=== PATIENT | male | born 1965 ===

== ENCOUNTER 2023-04-20 20:20 | Emergency (ER) | payer MEDICARE, OTHER ==
[~2023-04-20] VITALS: Ht 185.4 cm; Wt 60.0 kg
[2023-04-20 22:55] VITALS: BP 158/101; PULSE 78; RESP 18; TEMP 98.1
== END 2023-04-20 23:52 | disposition home or self-care (01) ==
LOC: EMS 20:30
DX: F25.9 Schizoaffective disorder, unspecified (principal); F69 Unspecified disorder of adult personality and behavior; F41.9 Anxiety disorder, unspecified; F32.A Depression, unspecified; I10 Essential (primary) hypertension; F17.210 Nicotine dependence, cigarettes, uncomplicated; F12.90 Cannabis use, unspecified, uncomplicated
CPT/HCPCS: 99284; Z7502